=== PATIENT | male | born 1990 | race Caucasian/White ===

== ENCOUNTER 2021-06-25 19:22 | Emergency (ER) | payer BC ==
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
--- NOTE | 2021-06-25 20:07 | XR ---
EXAMINATION TYPE: XR forearm LT DATE OF EXAM: 06/25/2021 7:47 PM INDICATION: Patient age:Male; 31 years old; Reason for study: injury, swelling; COMPARISON: None TECHNIQUE: The left forearm was examined in AP and lateral projections. FINDINGS: No acute osseous pathology, soft tissue swelling or joint dislocations are seen. IMPRESSION: No evidence of acute fracture.
[2021-06-25] MEDS ORDERED: SODIUM CHLORIDE 0.9% 1,000 ML IV ONE (20:46)
[2021-06-25] MEDS ORDERED: ACETAMINOPHEN TAB 325 MG TAB PO STA (21:17)
[2021-06-25 21:33] VITALS: BP 134/82; PULSE 109; RESP 20; TEMP 100.6
== END 2021-06-25 21:19 | disposition home or self-care (01) ==
LOC: EC 19:22
DX: S50.12XA Contusion of left forearm, initial encounter (principal); T14.90XA Injury, unspecified, initial encounter
CPT/HCPCS: 99284